=== PATIENT | male | born 1985 | race Caucasian/White ===

== ENCOUNTER 2021-10-05 20:42 | Emergency (ER) | payer OTHER ==
[~2021-10-05 20:42] MED LIST: MONODOX100 MG PO; ZOVIRAX200 MG PO
== END 2021-10-05 22:30 ==
LOC: FER 20:42
DX: S01.81XA Laceration without foreign body of other part of head, initial encounter (principal); Y04.0XXA Assault by unarmed brawl or fight, initial encounter; Y92.149 Unspecified place in prison as the place of occurrence of the external cause
CPT/HCPCS: 70450; 90471; 90715